=== PATIENT | female | born 1990 | race Caucasian/White ===

== ENCOUNTER 2018-08-03 15:39 | Emergency (ER) | END 2018-08-03 18:07 | disposition home or self-care (01) ==

== ENCOUNTER 2019-04-03 04:15 | Emergency (ER) | payer OTHER ==
[~2019-04-03] VITALS: Ht 177.8 cm; Wt 123.6 kg
[~2019-04-03 04:15] MED LIST: CIPRO; HYDR-4011 PO
[2019-04-03 04:19] VITALS: BP 159/76; PULSE 83; RESP 18; Ht 177.8 cm; Wt 123.6 kg
[2019-04-03] MEDS ORDERED: FLUCONAZOLE 150 MG TAB PO ONE (05:30)
[2019-04-03] MEDS ORDERED: CEFTRIAXONE 250 MG INJ IM ONE (05:30)
[2019-04-03] MEDS ORDERED: AZITHROMYCIN 500 MG TAB PO ONE (05:30)
[2019-04-03] MEDS ORDERED: METR500T PO (05:55)
--- NOTE | 2019-04-03 06:03 | ERD ---
ER Documentation Chief Complaint Chief Complaint vaginal itch/discharge x 1 week, also states sore throat HPI 28-year-old female presents for vaginal discharge x one week. States there is also a sore throat. She states that she is concerned about STD given that she had unprotected sex and noted symptoms days later. She has no significant past medical history. She states that the vaginal discharge is a yellowish discoloration with some itchiness. She states that she has had a yeast infection in the past and states that the symptoms currently are different. Denies fevers or chills. Denies chest pain or shortness of breath. No other modifying factors noted, no treatments tried at home. ROS All systems reviewed and are negative except as per history of present illness. Medications Home Meds Active Scripts Metronidazole* (Flagyl*) 500 Mg Tablet, 500 MG PO BID for infection for 7 Days, #1 TAB Prov:NAFISA ISRAEL DO 04/03/19 Hydrocodone/Acetaminophen ([place] 5-325 Tablet) 1 Each Tablet, 1 TAB PO QHS PRN for PAIN, #7 TAB Prov:RYANN NUÑEZ PA-C 08/03/18 Reported Medications [Cipro] No Conflict Check 12/01/12 Allergies Allergies: Coded Allergies: No Known Allergy (Unverified , 04/03/19) PMhx/Soc Medical and Surgical Hx: pt denies Medical Hx History of Surgery: Yes (c section) Anesthesia Reaction: No Hx Neurological Disorder: No Hx Respiratory Disorders: No Hx Psychiatric Problems: No Hx Miscellaneous Medical Probl: Yes (KIDNEY INFECTION) Hx Alcohol Use: Yes Hx Substance Use: Yes (marijuana) Hx Tobacco Use: Yes Smoking Status: Current some day smoker FmHx Family History: No coronary disease Physical Exam Vitals Vital Signs Date Temp Pulse Resp B/P (MAP) Pulse Ox O2 O2 Flow FiO2 Time Delivery Rate 04/03/19 97.6 83 18 159/76 100 04:19 (103) Physical Exam Const: No acute distress Resp: Clear to auscultation bilaterally Cardio: Regular rate and rhythm, no murmurs Abd: Soft, non tender, non distended. Normal bowel sounds Skin: No petechiae or rashes Back: No midline or flank tenderness Ext: No cyanosis, or edema Neur: Awake and alert Psych: Normal Mood and Affect Results 24 hrs Laboratory Tests Test 04/03/19 05:18 04/03/19 05:24 Rapid Plasma Reagin NONREACTIVE Chlamydia trachomatis RNA (TMA) NOT DETECTED Chlamydia/GC Comment SEE NOTE Hepatitis B Surface Antigen NEGATIVE Hepatitis B Surface Antibody POSITIVE Hepatitis C Antibody NEGATIVE HIV (1&2) Antibody NEGATIVE Neisseria gonorrhoeae RNA (TMA) NOT DETECTED POC Beta HCG, Qualitative NEGATIVE Current Medications Medications Dose Sig/Melissa Start Time Status Last (Trade) Ordered Route PRN Stop Time Admin Dose Reason Admin Ceftriaxone 250 mg ONCE ONCE 04/03/19 DC 04/03/19 Sodium IM 05:30 05:41 (Rocephin) 04/03/19 05:31 1,000 mg ONCE ONCE 04/03/19 DC 04/03/19 Azithromycin PO 05:30 05:40 (Zithromax) 04/03/19 05:31 Fluconazole 150 mg ONCE ONCE 04/03/19 DC 04/03/19 (Diflucan) PO 05:30 05:42 04/03/19 05:31 Procedures/MDM Medical Decision Makin-year-old female presents for vaginal discharge and itchiness. She is concerned of STDs. Patient appeared well on physical exam. ED course: Patient screened for HIV, hepatitis B, hepatitis C, syphilis, and GC/chlamydia Patient also agreed to be treated empirically. Patient was given azithromycin 1 g, Rocephin 250 mg IM, Diflucan 250 mg x 1 Patient given prescription for Flagyl RPR was negative, chlamydia and gonorrhea RNA was not detected. Hepatitis B antibodies were positive. Hepatitis B antigen negative, patient's HIV 1 and 2 antibody was negative Patient advised to follow up with PCP in 1-2 days. Patient advised to return to ED for new or worsening symptoms. Patient stable on discharge from the ED. Disclaimer: Inadvertent spelling and grammatical errors are likely due to EHR/dictation software use and do not reflect on the overall quality of patient care. Also, please note that the electronic time recorded on this note does not necessarily reflect the actual time of the patient encounter. Departure Diagnosis: Primary Impression: Vaginal discharge Condition: Fair Patient Instructions: What Are Sexually Transmitted Diseases (STDs)?, Teens: STD Symptoms in Women Referrals: COMMUNITY CLINICS YOU HAVE RECEIVED A MEDICAL SCREENING EXAM AND THE RESULTS INDICATE THAT YOU DO NOT HAVE A CONDITION THAT REQUIRES URGENT TREATMENT IN THE EMERGENCY DEPARTMENT. FURTHER EVALUATION AND TREATMENT OF YOUR CONDITION CAN WAIT UNTIL YOU ARE SEEN IN YOUR DOCTORS OFFICE WITHIN THE NEXT 1-2 DAYS. IT IS YOUR RESPONSIBILITY TO MAKE AN APPOINTMENT FOR FOLOW-UP CARE. IF YOU HAVE A PRIMARY DOCTOR --you should call your primary doctor and schedule an appointment IF YOU DO NOT HAVE A PRIMARY DOCTOR YOU CAN CALL OUR PHYSICIAN REFERRAL HOTLINE AT IF YOU CAN NOT AFFORD TO SEE A PHYSICIAN YOU CAN CHOSE FROM THE FOLLOWING [facility] [address] [facility] [address] [facility] [facility] [address] [facility] [address] [facility]. [facility] [address] [facility] [facility]. [address] Additional Instructions: Call your primary care doctor TOMORROW for an appointment during the next 1-2 days.See the doctor sooner or return here if your condition worsens before your appointment time. NAFISA ISRAEL DO April 03, 2019 06:03
== END 2019-04-03 07:14 | disposition home or self-care (01) ==
LOC: FTE 04:15
DX: N89.8 Other specified noninflammatory disorders of vagina (principal); F17.210 Nicotine dependence, cigarettes, uncomplicated
CPT/HCPCS: 36415; 81025; 86592; 86703; 86706; 86803; 87340; 87591; 96372; J0696; Z7502; Z7610